=== PATIENT | male | born 1985 | race Caucasian/White ===

== ENCOUNTER 2022-08-21 09:20 | Outpatient (CLI) | payer BC, SELFPAY ==
[2022-08-21 10:02] LABS: Basophils Percent Auto 0.3 % (0.2-1.2); Eosinophils Percent Auto 0.6 % (0-4.4); Hematocrit 38.2 % (42.0-52.0); Hemoglobin 12.6 g/dL (14.0-18.0); Immature Granulocyte Absolute 0.02 K/mm3 (0.00-0.031); Immature Granulocyte Percent A 0.3 % (0-0.5); Lymphocytes Absolute Auto 1.44 K/mm3 (0.9-3.2); Lymphocytes Percent Auto 20.7 % (18.3-44.2); Mean Platelet Volume 10.4 fl (7.4-10.4); Monocytes Absolute Auto 0.4 K/mm3 (0.1-0.6); Monocytes Percent Auto 5.6 % (2.6-8.5); Neutrophils Percent Auto 72.5 % (45.5-73.1); Platelet Count Result 167 k/mm3 (150-375); Red Blood Count 4.34 M/mm3 (4.6-6.20); Red Cell Distribution Width 12.1 % (11.5-14.5)
[2022-08-21 10:15] LABS: Anion Gap 11 mmol/L (8-16); Blood Urea Nitrogen 16 mg/dL (9-20); Calcium 9.2 mg/dL (8.4-10.2); Carbon Dioxide 24 mmol/L (22-30); Chloride 105 mmol/L (98-107); Cholesterol 73 mg/dL (0-200); Estimated Glomerular Filt Rate > 60; Glucose 100 mg/dL (65-110); HDL Direct 29 mg/dL; Sodium 140 mmol/L (137-145); Triglycerides 108 mg/dL (<150)
[2022-08-21 11:19] LABS: Hemoglobin A1C 5.5 % (<5.7)
[2022-08-21 11:53] LABS: LDL Cholesterol Direct < 30 mg/dL
== END 2022-08-21 09:21 | disposition home or self-care (01) ==
LOC: ANHLAB 09:26
PROVIDERS: Visit Provider Family Medicine
DX: E11.65 Type 2 diabetes mellitus with hyperglycemia (principal); E78.5 Hyperlipidemia, unspecified; D69.6 Thrombocytopenia, unspecified
CPT/HCPCS: 36415; 80048; 80061; 83036; 85025